=== PATIENT | female | born 1975 | race Two or more races ===

== ENCOUNTER 2021-09-11 17:38 | Inpatient (IN) | payer OTHER ==
[2021-09-11] MEDS ORDERED: BISMUTH SUBSALICYLATE 524 MG/30 ML PO PRN (20:15)
[2021-09-11] MEDS ORDERED: MENTHOL/PHENOL 1 EACH UD MM PRN (20:15)
[2021-09-11] MEDS ORDERED: MAGNESIUM CITRATE 300 ML BOTTLE PO PRN (20:15)
[2021-09-11] MEDS ORDERED: ACETAMINOPHEN 325 MG TABLET (FP) PO PRN ×2 (20:15)
[2021-09-11] MEDS ORDERED: ONDANSETRON *ODT* 4 MG TABLET SL PRN (20:15)
[2021-09-11] MEDS ORDERED: MELATONIN 5 MG TABLETS PO PRN (20:15)
[2021-09-11] MEDS ORDERED: P-EPHED 60MG/TRIPROLIDI 2.5MG TABLET PO PRN (20:15)
[2021-09-11] MEDS ORDERED: NICOTINE 10 MG CARTRIDGE (INHALER) IH PRN (20:15)
[2021-09-11] MEDS ORDERED: MAG HYDROX/AL HYDROX/SIMETH 30 ML UNIT-DOSE CUP PO PRN (20:15)
[2021-09-11] MEDS ORDERED: MAGNESIUM HYDROX 2400MG/30ML ORAL SUSPENSION 30 ML CUP PO PRN (20:15)
[2021-09-11] MEDS ORDERED: LOPERAMIDE HCL 2 MG CAPSULE PO PRN (20:15)
[2021-09-11] MEDS ORDERED: cloNIDine HCL 0.1 MG TABLET PO PRN (20:18)
[2021-09-11] MEDS ORDERED: methaDONE HCL 10 MG TABLET (FOR DETOX USE ONLY) PO ONE (20:18)
[2021-09-11] MEDS: INSULIN SLIDING SCALE (NOVOLOG) 1 VIAL SQ SCH (22:02)
[2021-09-12 00:41] VITALS: BMI 25.2
[2021-09-12] MEDS: THIAMINE HCL 100 MG TABLET (FP) PO SCH ×2 (01:18→22:35)
[2021-09-12] MEDS ORDERED: INSULIN (NOVOLOG) ASPART 100 UNITS/ML 10ML VIAL ONE (08:45)
[2021-09-12] MEDS: INSULIN SLIDING SCALE (NOVOLOG) 1 VIAL SQ SCH ×2 (08:47→18:05)
[2021-09-12] MEDS ORDERED: methaDONE HCL 10 MG TABLET (FOR DETOX USE ONLY) PO ONE (10:00)
[2021-09-12 10:27] LABS: HEMOGLOBIN 12.3 GM/dL (10.7-15.3); MCH 28.1 pg (25.7-33.7); MCHC 32.4 g/dl (32.0-36.0); MEAN CELL VOLUME 86.8 fl (80-96); MEAN PLT VOLUME 7.6 fl (7.5-11.1); PLATELET COUNT 340 10^3/uL (134-434); RBC 4.38 M/mm3 (3.60-5.2); RDW 14.7 % (11.6-15.6); WHITE BLOOD COUNT 5.8 K/mm3 (4.0-10.0)
[2021-09-12 10:37] LABS: ALBUMIN 3.3 g/dl (3.4-5.0); BLOOD UREA NITROGEN 16.7 mg/dL (7-18); CALCIUM 9.1 mg/dL (8.5-10.1)
[2021-09-12 10:40] LABS: CREATININE 0.7 mg/dL (0.55-1.3)
[2021-09-12 10:42] LABS: BILIRUBIN,TOTAL 0.5 mg/dL (0.2-1)
[2021-09-12] MEDS: PRENATAL VITAMINS W/ FOLIC ACID TABLET (FP) PO SCH (11:00)
[2021-09-12 11:23] LABS: HIV INTERPRETATION NEGATIVE (NEGATIVE)
[2021-09-12] MEDS ORDERED: methaDONE HCL 10 MG TABLET (FOR DETOX USE ONLY) ONE (11:30)
[2021-09-12] MEDS ORDERED: PATIENT,S OWN MED:ALBUTEROL SO4 HFA INHALER IH PRN (11:53)
[2021-09-12] MEDS ORDERED: FLU VACC QS2021-22(6MOS UP)/PF 60 MCG/0.5 ML SYRINGE IM ONE (12:00)
[2021-09-12] MEDS: hydrOXYzine PAMOATE 25 MG CAPSULE (FP) PO PRN ×2 (12:42→22:35)
[2021-09-12] MEDS: MELATONIN 5 MG TABLETS PO PRN (22:35)
[2021-09-13] MEDS: IBUPROFEN 400 MG TABLET (FP) PO PRN (06:45)
[2021-09-13] MEDS: INSULIN SLIDING SCALE (NOVOLOG) 1 VIAL SQ SCH ×3 (06:49→21:58)
[2021-09-13] MEDS ORDERED: INSULIN SLIDING SCALE (NOVOLOG) 1 VIAL SQ ONE (07:02)
[2021-09-13] MEDS: METHOCARBAMOL 500 MG TABLET PO PRN ×2 (07:05→17:57)
[2021-09-13] MEDS: hydrOXYzine PAMOATE 25 MG CAPSULE (FP) PO PRN ×2 (07:05→17:57)
[2021-09-13] MEDS ORDERED: methaDONE HCL 10 MG TABLET (FOR DETOX USE ONLY) PO ONE (10:00)
[2021-09-13] MEDS: PRENATAL VITAMINS W/ FOLIC ACID TABLET (FP) PO SCH (10:38)
[2021-09-13] MEDS ORDERED: POTASSIUM CHLORIDE TABS 20 MEQ TABLET.ER (FP) PO ONE ×2 (12:45→21:00)
[2021-09-13] MEDS: THIAMINE HCL 100 MG TABLET (FP) PO SCH (21:58)
[2021-09-13] MEDS: MELATONIN 5 MG TABLETS PO PRN (22:00)
[2021-09-14] MEDS: METHOCARBAMOL 500 MG TABLET PO PRN (03:05)
[2021-09-14] MEDS: hydrOXYzine PAMOATE 25 MG CAPSULE (FP) PO PRN ×2 (03:05→10:49)
[2021-09-14] MEDS: IBUPROFEN 400 MG TABLET (FP) PO PRN (07:31)
[2021-09-14] MEDS: INSULIN SLIDING SCALE (NOVOLOG) 1 VIAL SQ SCH ×2 (07:32→11:56)
[2021-09-14 08:07] LABS: SARS-CoV-2 NAA Not Detected (Not Detected)
[2021-09-14 09:55] VITALS: BP 102/62; PULSE 112; TEMP 98.3
[2021-09-14] MEDS ORDERED: methaDONE HCL 10 MG TABLET (FOR DETOX USE ONLY) PO ONE (10:00)
[2021-09-14] MEDS: PRENATAL VITAMINS W/ FOLIC ACID TABLET (FP) PO SCH (10:51)
== END 2021-09-14 11:15 | disposition home or self-care (01) | DRG 773 ==
LOC: YASAS 17:38 → Y3N 09-12 11:51
PROVIDERS: ADMIT Allergy & Immunology; ATTEND Allergy & Immunology
PROC: HZ2ZZZZ Detoxification Services for Substance Abuse Treatment (ICD-10-PCS; principal; 2021-09-12)
DX: F11.23 Opioid dependence with withdrawal (principal); F14.20 Cocaine dependence, uncomplicated; F17.210 Nicotine dependence, cigarettes, uncomplicated; F41.9 Anxiety disorder, unspecified; F32.A Depression, unspecified; F43.10 Post-traumatic stress disorder, unspecified; E87.6 Hypokalemia; E11.42 Type 2 diabetes mellitus with diabetic polyneuropathy; R07.9 Chest pain, unspecified; Z62.810 Personal history of physical and sexual abuse in childhood; Z91.410 Personal history of adult physical and sexual abuse; Z79.4 Long term (current) use of insulin
CPT/HCPCS: 36415; 80053; 81025; 82962; 84132; 85027; 86780; 87389; 87811; 90686; C9803-CS; G0008; J0735; U0003; U0005

== ENCOUNTER 2021-09-14 12:31 | Inpatient (IN) | payer OTHER ==
[2021-09-14] MEDS ORDERED: SODIUM CHLORIDE 0.9% 500 ML INFUS.BAG IV ONE ×3 (12:43→16:06)
[2021-09-14] MEDS ORDERED: ACETAMINOPHEN 1000 MG/100 ML BAG IVPB ONE ×2 (12:52→20:13)
[2021-09-14] MEDS ORDERED: ONDANSETRON 4 MG/2 ML VIAL IVPUSH ONE (12:52)
[2021-09-14] MEDS ORDERED: ACETAMINOPHEN INJECTION 100 ML IVPB ONE (13:22)
[2021-09-14] MEDS ORDERED: ONDANSETRON 4 MG/2 ML VIAL ONE (13:22)
[2021-09-14 13:23] LABS: BASO % 0.3 % (0-2.0); EOS % 0.3 % (0-4.5); HEMATOCRIT 38.8 % (32.4-45.2); HEMOGLOBIN 12.5 GM/dL (10.7-15.3); LYMPH % 9.1 % (8-40); MCH 28.6 pg (25.7-33.7); MCHC 32.3 g/dl (32.0-36.0); MEAN CELL VOLUME 88.6 fl (80-96); MEAN PLT VOLUME 8.1 fl (7.5-11.1); MONO % 1.3 % (3.8-10.2); PLATELET COUNT 294 10^3/uL (134-434); RBC 4.38 M/mm3 (3.60-5.2); RDW 14.4 % (11.6-15.6); VENOUS BASE EXCESS -12.1 mmol/L (-2-2); VENOUS O2 SATURATION 83.9 % (70-80); VENOUS PCO2 24.8 mmHg (38-52); VENOUS PH 7.311 (7.310-7.410); WHITE BLOOD COUNT 7.8 K/mm3 (4.0-10.0)
[2021-09-14 13:40] LABS: CHLORIDE 100 mmol/L (98-107); SODIUM 131 mmol/L (136-145)
[2021-09-14 13:42] LABS: ALBUMIN 3.6 g/dl (3.4-5.0); CALCIUM 9.2 mg/dL (8.5-10.1); CO2 13 mmol/L (21-32)
[2021-09-14 13:44] LABS: BLOOD UREA NITROGEN 19.2 mg/dL (7-18)
[2021-09-14 13:46] LABS: CREATININE 1.2 mg/dL (0.55-1.3); LIPASE 42 U/L (73-393); SGOT/AST 40 U/L (15-37); SGPT/ALT 18 U/L (13-61)
[2021-09-14 13:47] LABS: BILIRUBIN,TOTAL 0.9 mg/dL (0.2-1); TOT PROT 7.8 g/dl (6.4-8.2)
[2021-09-14 13:49] LABS: ALK PHOS 80 U/L (45-117)
[2021-09-14 14:11] LABS: ANION GAP 18 MMOL/L (8-16); GLUCOSE,RANDOM 618 mg/dL (74-106)
[2021-09-14] MEDS ORDERED: LORazepam 2 MG TABLET PO ONE ×2 (14:15→16:29)
[2021-09-14] MEDS ORDERED: LORazepam 1 MG TABLET ONE (14:17)
[2021-09-14] MEDS: SODIUM CHLORIDE 1,000 ML IV SCH ×2 (15:19→22:28)
[2021-09-14 15:58] LABS: CHLORIDE 102 mmol/L (98-107); SODIUM 135 mmol/L (136-145)
[2021-09-14] MEDS ORDERED: INSULIN REGULAR 100 UNITS in SODIUM CHLORIDE 99 ML IVPB SCH ×2 (16:00→22:37)
[2021-09-14 16:01] LABS: ANION GAP 19 MMOL/L (8-16); CALCIUM 9.4 mg/dL (8.5-10.1); CO2 14 mmol/L (21-32)
[2021-09-14] MEDS ORDERED: POTASSIUM CHLORIDE TABS 20 MEQ TABLET.ER (FP) PO ONE (16:01)
[2021-09-14 16:02] LABS: BLOOD UREA NITROGEN 21.4 mg/dL (7-18)
[2021-09-14 16:04] LABS: CREATININE 1.1 mg/dL (0.55-1.3)
[2021-09-14 16:16] LABS: GLUCOSE,RANDOM 603 mg/dL (74-106)
[2021-09-14 16:29] LABS: URINE APPEARANCE CLEAR; URINE BILIRUBIN NEGATIVE (NEGATIVE); URINE COLOR YELLOW; URINE GLUCOSE (UA) 3+ (NEGATIVE); URINE KETONE 4+ (NEGATIVE); URINE LEUK ESTERASE NEGATIVE (NEGATIVE); URINE NITRITE NEGATIVE (NEGATIVE); URINE PROTEIN NEGATIVE (NEGATIVE); URINE UROBILINOGEN 0.2 mg/dL (0.2-1.0)
[2021-09-14] MEDS ORDERED: LORazepam 0.5 MG TABLET ONE (16:31)
[2021-09-14] MEDS ORDERED: LORazepam 2 MG/ML SDV VIAL IVPB PRN (18:00)
[2021-09-14] MEDS ORDERED: TRIMETHOBENZAMIDE HCL 200MG/2ML INJ IM ONE (18:03)
[2021-09-14] MEDS: KCL 10 MEQ IVPB 10 MEQ/100 ML INFUS.BAG IVPB SCH ×2 (20:27→21:31)
[2021-09-14] MEDS: HEPARIN NA (PORCINE) 5,000 UNITS/ML 1ML VIAL SQ SCH (21:30)
[2021-09-14] MEDS ORDERED: PNEUMOCOCCAL 23 VACCINE 0.5 ML VIAL IM ONE (21:30)
[2021-09-14] MEDS: MUPIROCIN 2% TOPICAL OINTMENT FOR DECOLONIZATION NS SCH (21:31)
[2021-09-14 21:57] LABS: BLOOD UREA NITROGEN 20.5 mg/dL (7-18)
[2021-09-14 21:58] LABS: CALCIUM 8.8 mg/dL (8.5-10.1)
[2021-09-14] MEDS ORDERED: PNEUMOC 13-VAL CONJ-DIP CRM/PF 0.5 ML DISP.SYRIN IM ONE (22:00)
[2021-09-14] MEDS: MELATONIN 5 MG TABLETS PO SCH (23:20)
[2021-09-14] MEDS: D5-1/2NS+20 MEQ KCL - 20 MEQ/1,000 ML INFUS.BAG IV SCH (23:21)
[2021-09-14] MEDS: INSULIN (LEVEMIR) 100 UNITS/ML UNITS SQ SCH (23:21)
[2021-09-14] MEDS: CHLORHEXIDINE GLUCONATE 4% CLEANSER FOR DECOLONIZATION TP SCH (23:22)
[2021-09-14] MEDS: LORazepam 2 MG/ML SDV VIAL IVPB PRN (23:55)
[2021-09-15 00:49] LABS: CALCIUM 8.4 mg/dL (8.5-10.1)
[2021-09-15 00:50] LABS: BLOOD UREA NITROGEN 15.3 mg/dL (7-18)
[2021-09-15 00:53] LABS: CREATININE 0.8 mg/dL (0.55-1.3)
[2021-09-15] MEDS ORDERED: LORazepam 0.5 MG TABLET PO ONE (01:56)
[2021-09-15] MEDS: LORazepam 2 MG/ML SDV VIAL IVPB PRN (05:09)
[2021-09-15] MEDS: D5-1/2NS+20 MEQ KCL - 20 MEQ/1,000 ML INFUS.BAG IV SCH (05:13)
[2021-09-15 05:32] LABS: BASO % 0.6 % (0-2.0); EOS % 1.4 % (0-4.5); HEMATOCRIT 35.4 % (32.4-45.2); HEMOGLOBIN 11.3 GM/dL (10.7-15.3); LYMPH % 39.8 % (8-40); MCH 28.3 pg (25.7-33.7); MEAN CELL VOLUME 88.3 fl (80-96); MEAN PLT VOLUME 7.7 fl (7.5-11.1); MONO % 7.5 % (3.8-10.2); NEUT % 50.7 % (42.8-82.8); PLATELET COUNT 301 10^3/uL (134-434); RBC 4.01 M/mm3 (3.60-5.2); RDW 14.6 % (11.6-15.6); WHITE BLOOD COUNT 8.2 K/mm3 (4.0-10.0)
[2021-09-15 05:48] LABS: ALBUMIN 3.3 g/dl (3.4-5.0); BLOOD UREA NITROGEN 12.1 mg/dL (7-18); CALCIUM 8.5 mg/dL (8.5-10.1); MAGNESIUM 1.9 mg/dL (1.8-2.4); VENOUS BASE EXCESS -10.8 mmol/L (-2-2); VENOUS O2 SATURATION 31.3 % (70-80); VENOUS PCO2 45.4 mmHg (38-52)
[2021-09-15 05:50] LABS: VENOUS PH 7.192 (7.310-7.410)
[2021-09-15 05:52] LABS: CREATININE 0.9 mg/dL (0.55-1.3); PHOSPHOROUS 2.6 mg/dL (2.5-4.9)
[2021-09-15 05:54] LABS: BILIRUBIN,TOTAL 0.4 mg/dL (0.2-1); TOT PROT 6.4 g/dl (6.4-8.2)
[2021-09-15] MEDS ORDERED: LORazepam 2 MG/ML SDV VIAL IVPUSH PRN (06:09)
[2021-09-15] MEDS: INSULIN SLIDING SCALE (NOVOLOG) 1 VIAL SQ SCH ×5 (06:29→21:37)
[2021-09-15] MEDS ORDERED: DEXTROSE 5%-0.45% SALINE 1,000 ML IV SCH (07:00)
[2021-09-15] MEDS: HEPARIN NA (PORCINE) 5,000 UNITS/ML 1ML VIAL SQ SCH ×2 (09:47→21:39)
[2021-09-15] MEDS: MUPIROCIN 2% TOPICAL OINTMENT FOR DECOLONIZATION NS SCH ×2 (09:47→21:57)
[2021-09-15 11:24] LABS: CALCIUM 8.3 mg/dL (8.5-10.1)
[2021-09-15 11:26] LABS: BLOOD UREA NITROGEN 8.3 mg/dL (7-18)
[2021-09-15 11:28] LABS: CREATININE 0.8 mg/dL (0.55-1.3)
[2021-09-15 12:01] LABS: VENOUS BASE EXCESS -11.2 mmol/L (-2-2); VENOUS O2 SATURATION 65.5 % (70-80); VENOUS PCO2 39.4 mmHg (38-52); VENOUS PH 7.222 (7.310-7.410)
[2021-09-15] MEDS: DEXTROSE 5%-0.45% SALINE 1,000 ML IV SCH ×2 (16:38→21:38)
[2021-09-15 18:07] LABS: SARS-CoV-2 NAA Not Detected (Not Detected)
[2021-09-15] MEDS: INSULIN (LEVEMIR) 100 UNITS/ML UNITS SQ SCH (21:36)
[2021-09-15] MEDS: CHLORHEXIDINE GLUCONATE 4% CLEANSER FOR DECOLONIZATION TP SCH (21:37)
[2021-09-15] MEDS: MELATONIN 5 MG TABLETS PO SCH (21:37)
[2021-09-16] MEDS: INSULIN SLIDING SCALE (NOVOLOG) 1 VIAL SQ SCH ×2 (06:16→10:39)
[2021-09-16] MEDS ORDERED: LORazepam 2 MG/ML SDV VIAL IVPUSH ONE (06:32)
[2021-09-16 06:46] VITALS: TEMP 98.7
[2021-09-16] MEDS ORDERED: INSULIN (NOVOLOG) ASPART 100 UNITS/ML 10ML VIAL SQ SCH (07:00)
[2021-09-16] MEDS: HEPARIN NA (PORCINE) 5,000 UNITS/ML 1ML VIAL SQ SCH (10:02)
[2021-09-16] MEDS: MUPIROCIN 2% TOPICAL OINTMENT FOR DECOLONIZATION NS SCH (10:02)
[2021-09-16 11:03] VITALS: BP 140/96; PULSE 95
[2021-09-16 12:10] LABS: BASO % 0.8 % (0-2.0); EOS % 2.8 % (0-4.5); HEMATOCRIT 36.7 % (32.4-45.2); HEMOGLOBIN 12.2 GM/dL (10.7-15.3); LYMPH % 46.5 % (8-40); MCH 28.4 pg (25.7-33.7); MCHC 33.3 g/dl (32.0-36.0); MEAN CELL VOLUME 85.3 fl (80-96); MEAN PLT VOLUME 7.5 fl (7.5-11.1); MONO % 6.3 % (3.8-10.2); NEUT % 43.6 % (42.8-82.8); PLATELET COUNT 283 10^3/uL (134-434); RDW 14.8 % (11.6-15.6)
[2021-09-16 12:37] LABS: ALBUMIN 2.9 g/dl (3.4-5.0); CALCIUM 8.5 mg/dL (8.5-10.1)
[2021-09-16 12:38] LABS: BLOOD UREA NITROGEN 3.7 mg/dL (7-18)
[2021-09-16 12:40] VITALS: BMI 23.6
[2021-09-16 12:41] LABS: CREATININE 0.6 mg/dL (0.55-1.3)
[2021-09-16 12:42] LABS: BILIRUBIN,TOTAL 0.5 mg/dL (0.2-1); TOT PROT 6.4 g/dl (6.4-8.2)
[2021-09-16] MEDS ORDERED: INSULIN (LEVEMIR) 100 UNITS/ML UNITS SQ ONE (12:49)
[2021-09-16] MEDS ORDERED: LORazepam 0.5 MG TABLET PO ONE (13:06)
[2021-09-16] MEDS ORDERED: GABAPENTIN 100 MG CAPSULE PO SCH (14:00)
[2021-09-16] MEDS ORDERED: VENLAFAXINE HCL 75 MG E.R. CAPSULES PO SCH (14:30)
[2021-09-16] MEDS ORDERED: INSULIN (LEVEMIR) 100 UNITS/ML UNITS SQ SCH ×2 (22:00)
[2021-09-17] MEDS ORDERED: MULTIVITAMINS (DAILY MVI) TABLET (FP) PO SCH (10:00)
== END 2021-09-16 15:23 | disposition home or self-care (01) | DRG 420 ==
LOC: JER 12:31 → JERBED 14:24 → JICU 17:44
PROVIDERS: ADMIT Internal Medicine Pulmonary Disease; ATTEND Internal Medicine
DX: E11.10 Type 2 diabetes mellitus with ketoacidosis without coma (principal); E87.5 Hyperkalemia; F11.20 Opioid dependence, uncomplicated; E87.1 Hypo-osmolality and hyponatremia; F43.10 Post-traumatic stress disorder, unspecified; F41.9 Anxiety disorder, unspecified; F19.10 Other psychoactive substance abuse, uncomplicated; Z79.4 Long term (current) use of insulin
CPT/HCPCS: 36415; 71045-TC-FY; 80048; 80053; 81003; 82010; 82550; 82803; 82962; 83036; 83690; 83735; 84100; 84484; 84703; 85025; 87086; 93005; 93010; 99285-25; C9803-CS; J1644; U0003; U0005